=== PATIENT | female | born 1990 | race Caucasian/White ===

== ENCOUNTER 2017-02-25 13:03 | Emergency (ER) | END 2017-02-25 16:00 | disposition left against medical advice (07) ==

== ENCOUNTER 2018-09-15 08:33 | Emergency (ER) | payer SELFPAY ==
[~2018-09-15] VITALS: Ht 149.9 cm; Wt 74.7 kg
[~2018-09-15 08:33] MED LIST: ACET325T33 PO; FAMO-96 PO; FERR27TA PO; NITR100C6 PO; PREN1TAB49 PO
[2018-09-15 08:35] VITALS: Ht 149.9 cm; Wt 74.7 kg
[2018-09-15] MEDS ORDERED: ONDANSETRON (ODT) 4 MG TAB ODT STA (08:52)
[2018-09-15] MEDS ORDERED: HYDROCODONE/APAP (5/325) TAB PO ONE (09:00)
[2018-09-15 10:39] VITALS: BP 116/60; PULSE 77; RESP 19
--- NOTE | 2018-09-15 11:23 | ERD ---
ER Documentation Chief Complaint Chief Complaint RUQ PAIN AND NAUSEA HPI 27-year-old female presenting with right upper quadrant pain and nausea. She states that she has generalized abdominal pain however is isolated primarily to the epigastric region. This started yesterday. She denies any chest pain or shortness of breath. Denies any fevers. Denies allergies to medications. Has used Tylenol with mild alleviation of symptoms. Surgical history of ovarian cyst removal. Social history denies ROS All systems reviewed and are negative except as per history of present illness. Medications Home Meds Active Scripts Acetaminophen* (Tylenol*) 325 Mg Tablet, 2 TAB PO Q6 PRN for PAIN AND OR ELEVATED TEMP, #20 TAB Prov:FRANK RUIZ PA-C 09/15/18 Famotidine* (Pepcid*) 20 Mg Tablet, 20 MG PO BID for 4 Days, #30 TAB Prov:FRANK RUIZ PA-C 09/15/18 Reported Medications Nitrofurantoin Monohyd Macrocr (Macrobid) 100 Mg Capsr, 100 MG PO BID, CAP 12/28/15 Vits W-Ca,Fe,Fa(<1MG) () 1 Tab Tablet, 1 TAB PO DAILY 01/17/11 Ferrous Sulfate (Iron) 1 Tab Tablet, 1 TAB PO BID 01/17/11 Allergies Allergies: Coded Allergies: No Known Drug Allergies (Verified Allergy, Mild, 01/08/16) PMhx/Soc History of Surgery: Yes ( left ovarian cyst removal) Hx Neurological Disorder: No Hx Respiratory Disorders: No Hx Psychiatric Problems: No Hx Miscellaneous Medical Probl: No Hx Alcohol Use: No Hx Substance Use: No Hx Tobacco Use: No FmHx Family History: No diabetes, No coronary disease, No other Physical Exam Vitals Vital Signs Date Temp Pulse Resp B/P (MAP) Pulse Ox O2 O2 Flow FiO2 Time Delivery Rate 09/15/18 98.3 77 19 116/60 98 Room Air 10:39 (78) 09/15/18 98.5 98 24 106/58 97 08:35 (74) Physical Exam GENERAL: The patient is well-appearing, well-nourished, in no acute distress CHEST: Clear to auscultation bilaterally. There are no rales, wheezes or rhonchi. HEART: Regular rate and rhythm. No murmurs, clicks, rubs or gallops. ABDOMEN: Active bowel sounds. No distention. No organomegaly. Mild tenderness palpation the epigastric region with no rebound tenderness. No rigidity. BACK: No midline or flank tenderness. Result Diagram: 09/15/1890209/15/18902 Results 24 hrs Laboratory Tests Test 09/15/18 09:03 White Blood Count 13.3 10^3/ul Red Blood Count 4.65 10^6/ul Hemoglobin 12.8 g/dl Hematocrit 39.9 % Mean Corpuscular Volume 85.8 fl Mean Corpuscular Hemoglobin 27.5 pg Mean Corpuscular Hemoglobin Concent 32.1 g/dl Red Cell Distribution Width 13.1 % Platelet Count 246 10^3/UL Mean Platelet Volume 9.7 fl Immature Granulocytes % 0.500 % Neutrophils % 86.4 % Lymphocytes % 7.6 % Monocytes % 5.2 % Eosinophils % 0.1 % Basophils % 0.2 % Nucleated Red Blood Cells % 0.0 /100WBC Immature Granulocytes # 0.060 10^3/ul Neutrophils # 11.5 10^3/ul Lymphocytes # 1.0 10^3/ul Monocytes # 0.7 10^3/ul Eosinophils # 0.0 10^3/ul Basophils # 0.0 10^3/ul Nucleated Red Blood Cells # 0.0 10^3/ul Urine Color YELLOW Urine Clarity CLOUDY Urine pH 8.0 Urine Specific [place] 1.024 Urine Ketones NEGATIVE mg/dL Urine Nitrite NEGATIVE mg/dL Urine Bilirubin NEGATIVE mg/dL Urine Urobilinogen NEGATIVE mg/dL Urine Leukocyte Esterase NEGATIVE [place]/ul Urine Microscopic RBC 17 /HPF Urine Microscopic WBC 10 /HPF Urine Squamous Epithelial Cells MANY /HPF Urine Bacteria FEW /HPF Urine Mucus MODERATE /HPF Urine Hemoglobin 1+ mg/dL Urine Glucose NEGATIVE mg/dL Urine Total Protein 1+ mg/dl Sodium Level 140 mmol/L Potassium Level 4.2 mmol/L Chloride Level 102 mmol/L Carbon Dioxide Level 28 mmol/L Anion Gap 10 Blood Urea Nitrogen 10 mg/dl Creatinine 0.52 mg/dl Est Glomerular Filtrat Rate mL/min > 60 mL/min Glucose Level 111 mg/dl Calcium Level 9.6 mg/dl Total Bilirubin 0.7 mg/dl Direct Bilirubin 0.00 mg/dl Indirect Bilirubin 0.7 mg/dl Aspartate Amino Transf (AST/SGOT) 19 IU/L Alanine Aminotransferase (ALT/SGPT) 18 IU/L Alkaline Phosphatase 81 IU/L Total Protein 7.1 g/dl Albumin 4.3 g/dl Globulin 2.80 g/dl Albumin/Globulin Ratio 1.53 Lipase 69 U/L Current Medications Medications Dose Sig/Ramos Start Time Status Last (Trade) Ordered Route PRN Stop Time Admin Dose Reason Admin 1 tab ONCE ONCE 09/15/18 DC 09/15/18 Acetaminophen PO 09:00 09:02 / 09/15/18 09:01 Hydrocodone Bitart ([place] (5/325)) Ondansetron 4 mg ONCE STAT 09/15/18 DC 09/15/18 HCl (Zofran ODT 08:52 09:01 Odt) 09/15/18 08:54 Procedures/MDM DIAGNOSTIC IMAGING REPORT Patient: JERI ASH : 1990 Age: 27 Sex: F MR #: [id number] DOS: 09/15/18 0852 Ordering MD: FERNANDO RUIZ PA-C Location: [facility] Room/Bed: PROCEDURE: ULTRASOUND LIMITED ABDOMEN CLINICAL INDICATION: 27-year-old female with abdominal pain. TECHNIQUE: Multiple sonographic of the right upper quadrant of the abdomen were obtained. The images were reviewed on a PACS workstation. COMPARISON: None. FINDINGS: The pancreas is partially visualized and is otherwise without abnormal echogenicity. The liver displays normal echogenicity. The liver measures 16.0 cm in length. N o evidence of intrahepatic biliary ductal dilatation is seen. The portal and hepatic veins are unremarkable. The gallbladder demonstrates no wall thickening, sludge, nor stones. No pericholecystic fluid is seen. The common bile duct measures 4.0 mm and is not dilated. The right kidney displays normal echogenicity. The right kidney measures 10.2 x 4.5 cm. No caliectasis or hydronephrosis is seen. No free fluid is seen. IMPRESSION: Unremarkable right upper quadrant abdominal ultrasound. MDM: 27-year-old female presenting with epigastric pain. Patient's blood work and imaging is within normal limits. The rest of patient's abdominal exam is non-concerning I do not feel that further imaging or blood work is indicated. I have low suspicion for cardiac or pulmonary emergency as patient's vitals are stable and exam is non-concerning. Patient does not have complaints of chest pain or shortness of breath. I have considered nephrolithiasis versus appendicitis versus bowel obstruction however low suspicion given patient's exam is non-concerning. I do not feel the risks of a CT scan are indicated at today's visit. I have low suspicion for urinary tract infection or pyeloneph ritis. Patient is discharged with strict ER precautions. I have low suspicion for AAA or aortic dissection. Patient is recommended follow-up with primary care. All questions answered at discharge Departure Diagnosis: Primary Impression: Epigastric pain Condition: Stable Patient Instructions: Epigastric Pain (Uncertain Cause) Referrals: [facility] YOU HAVE RECEIVED A MEDICAL SCREENING EXAM AND THE RESULTS INDICATE THAT YOU DO NOT HAVE A CONDITION THAT REQUIRES URGENT TREATMENT IN THE EMERGENCY DEPARTMENT. FURTHER EVALUATION AND TREATMENT OF YOUR CONDITION CAN WAIT UNTIL YOU ARE SEEN IN YOUR DOCTORS OFFICE WITHIN THE NEXT 1-2 DAYS. IT IS YOUR RESPONSIBILITY TO MAKE AN APPOINTMENT FOR FOLOW-UP CARE. IF YOU HAVE A PRIMARY DOCTOR --you should call your primary doctor and schedule an appointment IF YOU DO NOT HAVE A PRIMARY DOCTOR YOU CAN CALL OUR PHYSICIAN REFERRAL HOTLINE AT IF YOU CAN NOT AFFORD TO SEE A PHYSICIAN YOU CAN CHOSE FROM THE FOLLOWING [facility] [id number]. [facility] [address] [facility]. [facility] [address] [facility] [facility] [address] [facility]. [facility] [address] [facility]. [facility]. [address] Additional Instructions: FOLLOW UP WITH YOUR PRIMARY CARE PHYSICIAN TOMORROW.Return to this facility if you are not improving as expected. FRANK RUIZ PA-C Sep 15, 2018 11:23
== END 2018-09-15 10:40 | disposition home or self-care (01) ==
LOC: FTE 08:33
DX: R10.13 Epigastric pain (principal)
CPT/HCPCS: 36415; 76705; 80053; 81001; 83690; 85025